=== PATIENT | female | born 1985 | race Caucasian/White ===

== ENCOUNTER → 2017-03-12 11:23 | Outpatient (CLI) | payer BC, SELFPAY ==
--- NOTE | 2017-03-12 11:30 | US_ITS ---
STUDY: SECOND AND THIRD TRIMESTER OBSTETRICAL ULTRASOUND - LIMITED REASON FOR EXAM: Female, 31 years old. viability. LMP: December 01, 2016. PRIOR ULTRASOUND: None. TECHNIQUE: Transabdominal ultrasound evaluation was performed. FINDINGS: There is a single intrauterine fetus. The fetus is in a variable presentation. There is demonstrated cardiac activity with a heart rate of 153 bpm. There is a normal amniotic fluid volume. The placenta is posterior in location and is not low lying. There are Grade 0 placental changes. The cervix measures 6.2 cm in length. BIOMETRY: BPD: 2.98 cm: 15 weeks, 4 days HC: 10.99 cm: 15 weeks, 3 days AC: 8.74 cm: 50 weeks, 0 days FL: 1.49 cm: 14 weeks, 3 days Age by LMP: 14 weeks, 3 days. AMISHA by LMP: September 07, 2017. age by current US: 15 weeks, 0 days. AMISHA by current US: September 03, 2017. Estimated weight: 106 grams, +/- 60 grams, 60 percentile. Gender: Indeterminant US/OB Limited With Biometrics IMPRESSION: Single live intrauterine gestation with a mean gestational age of 15 weeks. Electronically Signed: Massimo Higgins MD at 13:23 EST Tel [phone], Service support ,
== END ==
PROVIDERS: Family Provider Family Medicine; PCP Family Medicine; Visit Provider Obstetrics & Gynecology
DX: Z34.90 Encounter for supervision of normal pregnancy, unspecified, unspecified trimester (principal)
CPT/HCPCS: 76816

== ENCOUNTER → 2017-04-12 10:02 | Outpatient (CLI) | payer BC, SELFPAY ==
[2017-03-19 08:49] VITALS: BP 113/70
[2017-03-19 08:56] VITALS: BMI 30.5
--- NOTE | 2017-04-12 10:05 | US_ITS ---
STUDY: SECOND AND THIRD TRIMESTER OBSTETRICAL ULTRASOUND REASON FOR EXAM: Female, 31 years old. , assessment LMP: November 27, 2016 TECHNIQUE: Transabdominal imaging of the pelvis was performed using real-time ultrasound. PRIOR ULTRASOUND: March 12, 2017 FINDINGS: There is a single intrauterine fetus. The fetus is in a breech presentation. There is demonstrated cardiac activity with a heart rate of 140 bpm. There is a normal amniotic fluid volume. The largest amniotic fluid pocket measures 4.5 cm. The amniotic fluid index (DELLA) is 14.2 cm. The placenta is posterior in location and is not low lying. There are Grade 0 placental changes. The cervix measures 4.4 cm in length. The adnexal regions were not adequately visualized. BIOMETRY: BPD: 4.27 cm: 19 weeks, 0 days HC: 16.31 cm: 19 weeks, 1 days AC: 14.02 cm: 19 weeks, 3 days FL: 3.04 cm: 19 weeks, 3 days CI: 75% FL/BPD: 71% FL/HC: FL/AC: 22% HC/AC: 1.16 age by current US: 19 weeks, 2 days. AMISHA by current US: September 04, 2017. Estimated weight: 288 grams, +/- 42 grams, 41 %. age by prior US: weeks, days. AMISHA by prior US: . Age by LMP: 19 weeks, 3 days. AMISHA by LMP: September 03, 2017. ANATOMY: Gender: Male Cranium: Normal lateral ventricles. Normal choroid plexus. Normal cerebellum. Normal cisterna magna. Normal face, nose and lips. Chest: Within normal limits on limited visualization. Abdomen/Pelvis: Normal diaphragm. Normal stomach. Normal abdominal wall. Normal cord insertion. Normal 3 vessel cord. Normal kidneys. Normal bladder. Spine: Normal cervical spine. Normal thoracic spine. Normal lumbar spine. Extremities: Normal bilateral upper extremities. Normal bilateral lower extremities. US/OB Anatomy Scan IMPRESSION: There is a viable intrauterine with estimated gestational age of 19 weeks 2 days by the current ultrasound. Measurements are given above. No significant anatomic abnormalities are seen. Electronically Signed: Maria Dolores Abdi MD at 13:06 EST Tel Direct: [phone], Service support ,
== END ==
PROVIDERS: Family Provider Family Medicine; PCP Family Medicine; Visit Provider Obstetrics & Gynecology
DX: Z36.89 Encounter for other specified antenatal screening (principal)
CPT/HCPCS: 76805

== ENCOUNTER → 2017-04-16 15:17 | Outpatient (CLI) | payer BC, SELFPAY | PROVIDERS: Family Provider Family Medicine; PCP Family Medicine; Visit Provider Nurse Practitioner Women's Health | DX: Z34.90 Encounter for supervision of normal pregnancy, unspecified, unspecified trimester (principal) | CPT/HCPCS: 87086; 87088 ==

== ENCOUNTER → 2017-06-12 11:33 | Outpatient (CLI) | payer BC, SELFPAY ==
[2017-06-12 12:35] LABS: Absolute Lymphocyte Count 1.58 X10^3/ul (0.83-4.51); Basophil# 0.01 X10^3/uL; Basophil% 0.1 % (0-1); Eosinophil# 0.19 X10^3/uL; Eosinophils% 2.3 % (0-5); Hematocrit 33.8 % (37-47); Hemoglobin 11.3 g/dl (12.0-15.0); Lymphocyte # 1.58 X10^3/ul (4.0); Lymphocyte % 19.2 % (19-41); Mean Corp Hgb Conc 33.4 g/gl (32-36); Mean Corpuscular Hgb 30.5 pg (27.0-32.0); Mean Corpuscular Volume 91.4 fL (81-99); Mean Platelet Vol. 9.8 fl (6.2-12.0); Monocyte# 0.41 X10^3/uL; Neutrophil # 5.97 X10^3/uL (2.7-7.7); Neutrophil % 72.7 % (47-70); Platelet Count 177 K/mm3 (150-450); RBC Distribution Width CV 12.5 % (11.6-14.6); RBC Distribution Width SD 40.7 fl (35.1-43.9); White Blood Count 8.2 K/mm3 (4.4-11.0)
[2017-06-12 12:36] LABS: POSITIVE COUNT NO; POSITIVE DIFFERENTIAL NO; POSITIVE MORPHOLOGY NO
[2017-06-12 12:51] LABS: Glucose Challenge Gest 1H 50g 162 mg/dL (70-140)
== END ==
PROVIDERS: Family Provider Family Medicine; PCP Family Medicine; Visit Provider Obstetrics & Gynecology
DX: Z34.82 Encounter for supervision of other normal pregnancy, second trimester (principal)
CPT/HCPCS: 36415; 82950; 85025; 86850; 86900

== ENCOUNTER → 2017-06-13 07:00 | Outpatient (CLI) | payer BC, SELFPAY ==
[2017-06-13 07:39] LABS: Glucose GTT-Gestation. Fasting 86 mg/dL (<105)
[2017-06-13 10:18] LABS: Glucose GTT-Gestational 1 Hr 151 mg/dL (<190)
[2017-06-13 10:21] LABS: Glucose GTT-Gestational 2 Hr 143 mg/dL (<165)
[2017-06-13 11:50] LABS: Glucose GTT-Gestational 3 Hr 93 L (<145)
== END ==
PROVIDERS: Family Provider Family Medicine; PCP Family Medicine; Visit Provider Nurse Practitioner Women's Health
DX: O99.810 Abnormal glucose complicating pregnancy (principal); Z3A.00 Weeks of gestation of pregnancy not specified
CPT/HCPCS: 36415; 82951; 82952

== ENCOUNTER → 2017-08-07 13:34 | Outpatient (CLI) | payer BC, SELFPAY ==
[2017-08-07 15:57] LABS: Group B Strep DNA By PCR Negative (Negative); Internal Control PASS; Probe Check PASS; Specimen Processing Control PASS
== END ==
PROVIDERS: Family Provider Family Medicine; PCP Family Medicine; Visit Provider Obstetrics & Gynecology
DX: Z34.90 Encounter for supervision of normal pregnancy, unspecified, unspecified trimester (principal)
CPT/HCPCS: 87081; 87653

== ENCOUNTER 2017-08-28 10:20 | Inpatient (IN) | payer BC, SELFPAY ==
[2017-08-26 17:41] VITALS: BMI 35.0
[2017-08-26 18:46] LABS: Absolute Lymphocyte Count 1.76 X10^3/ul (0.83-4.51); Absolute Neutrophil Count 5.5 X10^3/uL (2.0-7.7); Basophil# 0.01 X10^3/uL; Basophil% 0.1 % (0-1); Eosinophil# 0.13 X10^3/uL; Eosinophils% 1.6 % (0-5); Hematocrit 31.7 % (37-47); Hemoglobin 10.3 g/dl (12.0-15.0); Lymphocyte # 1.76 X10^3/ul (4.0); Lymphocyte % 21.8 % (19-41); Mean Corp Hgb Conc 32.5 g/gl (32-36); Mean Corpuscular Hgb 28.2 pg (27.0-32.0); Mean Corpuscular Volume 86.8 fL (81-99); Mean Platelet Vol. 10.2 fl (6.2-12.0); Monocyte# 0.65 X10^3/uL; Monocyte% 8.1 % (0-10); Neutrophil # 5.45 X10^3/uL (2.7-7.7); Neutrophil % 67.7 % (47-70); Platelet Count 137 K/mm3 (150-450); RBC Distribution Width CV 13.2 % (11.6-14.6); RBC Distribution Width SD 40.8 fl (35.1-43.9); Red Blood Count 3.65 M/mm3 (4.2-5.4); White Blood Count 8.1 K/mm3 (4.4-11.0)
[2017-08-26 18:47] LABS: POSITIVE COUNT NO; POSITIVE DIFFERENTIAL NO; POSITIVE MORPHOLOGY NO
--- NOTE | 2017-08-27 23:50 | PCM.HP.OB ---
- Problem List (1) with abnormal glucose tolerance test Status: Acute Comment: 3 hr GTT ordered (2) Anxiety during in third trimester, antepartum Status: Acute Comment: manolo hollowayril (3) Rh negative status during Status: Acute Qualifiers: Trimester: third trimester Comment: rhogam PRN and at 28 weeks (4) History of delivery, currently Status: Acute Comment: Wants repeat CS- 08/28/17 at Noon PAT 08/26/17 at 5pm in [place]. Declines TOLAC 53-68% likelihood of success, literature given (5) Supervision of normal Status: Acute Qualifiers: Normal : other normal Trimester: third trimester Qualified Code(s): Z34.83 - Encounter for supervision of other normal , third trimester Comment: PRR AMISHA 09/04/17 boy WON Mays Christiano History Date of Admission: 08/28/17 Final AMISHA: 09/04/17 Gestational age: 38 Weeks and 6 Days History of this : This is a 32 year-old, at 39 weeks gestational age presents for [facility] Medical History: Medical History (Last Reviewed 08/21/17 @ 11:26 by Ana Loomis) Abnormal Pap smear of cervix R87.619 Surgical History: Surgical History (Last Reviewed 08/21/17 @ 11:26 by Ana Loomis) delivery delivered O82 History of tonsillectomy and adenoidectomy Z98.890 gallbladder surgery Allergies No Known Allergies Allergy (Verified 08/21/17 09:11) Home Medications: Home Medications aspirin 81 mg chewable tablet 81 mg PO ONCE 03/19/17 vitamin,calcium,gqnedpok-gqja-wdwmz acid tablet 1 tab PO QDAY 03/19/17 citalopram 20 mg tablet 20 mg PO QDAY #30 tab 05/16/17 hydroxyzine pamoate 25 mg capsule 25 mg PO TID-QID PRN #60 cap 05/16/17 Boostrix Tdap 2.5 Lf unit-8 mcg-5 Lf/0.5 mL intramuscular syringe 0.5 ml IM ONCE #1 NS 06/12/17 RhoGAM Ultra-Filtered PLUS 1,500 unit (300 mcg) intramuscular syringe 1,500 unit IM ONCE #1 ea NS 06/12/17 Smoking Status: Former smoker History Past Pregnancies: Past Pregnancies Delivery Date Name GA/Weeks Outcome Route Weight Gender Labor Length Anesthesia Delivery Location Provider FOB Labs: Mom's Labs & Results 08/26/17 08/26/17 18:20 18:20 WBC 8.1 RBC 3.65 L Hgb 10.3 L Hct 31.7 L MCV 86.8 MCH 28.2 MCHC 32.5 RDW 13.2 RDW Differential 40.8 Plt Count 137 L MPV 10.2 Immature Gran % (Auto) 0.700 Neut % (Auto) 67.7 Lymph % (Auto) 21.8 Mckinley % (Auto) 8.1 Eos % (Auto) 1.6 Baso % (Auto) 0.1 Absolute Neuts (auto) 5.5 Absolute Lymphs (auto) 1.76 Total Counted Not Reportable Blood Type O NEGATIVE Antibody Screen NEGATIVE Course Did the patient receive Yes care? Labs Blood Type: O RH: NEGATIVE RPR/VDRL/Syphilis Nonreactive Rubella status Immune HbSAg Negative Date Done: 01/16/17 Chlamydia Negative Gonorrhea Negative HIV/AIDS Non-Reactive Group B Strep: Positive Current Obstetrical History Gestational Diabetes No Incompetent Cervix No Infertility No IUGR No Macrosomia No Hypertension/Pre-eclampsia No Placenta Previa/Abruption No PTL/PROM No Uterine anomaly No Oligohydramnios No Polyhydramnios No Multiple gestation No Past Medical History Asthma No Diabetes No Hypertension No Heart disease No Mitral valve prolapse No Neurologic/Seizure disorder/ No Migraines Kidney disease No Liver disease No Varicosities No Clotting disorders/Hx of DVT No Thyroid Dysfunction No Other medical diseases No Psychiatric disorders No Major trauma No Abnormal PAP smear No Sleep apnea No Mammogram in the last 2 years No Social History Marital Status: Alleged father Christiano Hx Smoking Yes Smoking Status Former smoker Expected Delivery Method: Scheduled Section Review of Systems Constitutional: Denies: Fever, Malaise Eyes: Denies: Blurred vision, Vision Change HEENT: Denies: Head Aches, Visual Changes Cardiovascular: Denies: Chest Pain, Palpitations Respiratory: Denies: Cough, Shortness of Breath, Wheezing Gastrointestinal: Denies: Abdominal Pain, Diarrhea, Nausea, Vomiting Genitourinary: Denies: Dysuria, Hematuria Musculoskeletal: Denies: Joint Pain, Muscle pain Skin: Denies: Lesions, Rash Neurological: Denies: Blurred vision, Focal weakness, Headaches Psychiatric: Denies: Anxiety, Depression Endocrine: Denies: Heat/ Cold Intolerance Hematologic/ Lymphatic: Denies: Easy Bruising, Easy Bleeding Physical Exam General: Alert, Cooperative, No apparent distress HEENT: Atraumatic, Normocephalic. Negative for: Thyromegaly, Lymphadenopathy Cardiovascular: Regular rate Lungs: Normal air movement Abdomen: Soft, Non Tender, Gravid Neurological: Deep Tendon Reflexes 2+/4 and Symmetrical, Neuro grossly intact. 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 Negative for: Vulvar lesions Estimated gestational size: Appropriate for gestational size Presentation: Cephalic Assessment/Plan All Active Problems (Last Reviewed 08/21/17 @ 11:26 by Ana Loomis) Segmental and somatic dysfunction of cervical region (Acute) Segmental and somatic dysfunction of pelvic region (Acute) Segmental and somatic dysfunction of sacral region (Acute) with abnormal glucose tolerance test (Acute) Anxiety during in third trimester, antepartum (Acute) Rh negative status during (Acute) History of delivery, currently (Acute) Supervision of normal (Acute) This is a 32 year-old, , at 39 weeks gestational age for RLTCS plan RLTCS declines TOLAC
--- NOTE | 2017-08-27 23:53 | HP.PCM_ITS ---
- Problem List (1) with abnormal glucose tolerance test Status: Acute Comment: 3 hr GTT ordered (2) Anxiety during in third trimester, antepartum Status: Acute Comment: manolo hollowayril (3) Rh negative status during Status: Acute Qualifiers: Trimester: third trimester Comment: rhogam PRN and at 28 weeks (4) History of delivery, currently Status: Acute Comment: Wants repeat CS- 08/28/17 at Noon PAT 08/26/17 at 5pm in [place]. Declines TOLAC 53-68% likelihood of success, literature given (5) Supervision of normal Status: Acute Qualifiers: Normal : other normal Trimester: third trimester Qualified Code(s): Z34.83 - Encounter for supervision of other normal , third trimester Comment: PRR AMISHA 09/04/17 boy WON Mays Christiano History Date of Admission: 08/28/17 Final AMISHA: 09/04/17 Gestational age: 38 Weeks and 6 Days History of this : This is a 32 year-old, at 39 weeks gestational age presents for [facility] Medical History: Medical History (Last Reviewed 08/21/17 @ 11:26 by Ana Loomis) Abnormal Pap smear of cervix R87.619 Surgical History: Surgical History (Last Reviewed 08/21/17 @ 11:26 by Ana Loomis) delivery delivered O82 History of tonsillectomy and adenoidectomy Z98.890 gallbladder surgery Allergies No Known Allergies Allergy (Verified 08/21/17 09:11) Home Medications: Home Medications aspirin 81 mg chewable tablet 81 mg PO ONCE 03/19/17 vitamin,calcium,qrvepvxl-jouh-xayyk acid tablet 1 tab PO QDAY 03/19/17 citalopram 20 mg tablet 20 mg PO QDAY #30 tab 05/16/17 hydroxyzine pamoate 25 mg capsule 25 mg PO TID-QID PRN #60 cap 05/16/17 Boostrix Tdap 2.5 Lf unit-8 mcg-5 Lf/0.5 mL intramuscular syringe 0.5 ml IM ONCE #1 NS 06/12/17 RhoGAM Ultra-Filtered PLUS 1,500 unit (300 mcg) intramuscular syringe 1,500 unit IM ONCE #1 ea NS 06/12/17 Smoking Status: Former smoker History Past Pregnancies: Past Pregnancies Delivery Date Name GA/Weeks Outcome Route Weight Gender Labor Length Anesthesia Delivery Location Provider FOB Labs: Mom's Labs & Results 08/26/17 08/26/17 18:20 18:20 WBC 8.1 RBC 3.65 L Hgb 10.3 L Hct 31.7 L MCV 86.8 MCH 28.2 MCHC 32.5 RDW 13.2 RDW Differential 40.8 Plt Count 137 L MPV 10.2 Immature Gran % (Auto) 0.700 Neut % (Auto) 67.7 Lymph % (Auto) 21.8 Leslie % (Auto) 8.1 Eos % (Auto) 1.6 Baso % (Auto) 0.1 Absolute Neuts (auto) 5.5 Absolute Lymphs (auto) 1.76 Total Counted Not Reportable Blood Type O NEGATIVE Antibody Screen NEGATIVE Course Did the patient receive Yes care? Labs Blood Type: O RH: NEGATIVE RPR/VDRL/Syphilis Nonreactive Rubella status Immune HbSAg Negative Date Done: 01/16/17 Chlamydia Negative Gonorrhea Negative HIV/AIDS Non-Reactive Group B Strep: Positive Current Obstetrical History Gestational Diabetes No Incompetent Cervix No Infertility No IUGR No Macrosomia No Hypertension/Pre-eclampsia No Placenta Previa/Abruption No PTL/PROM No Uterine anomaly No Oligohydramnios No Polyhydramnios No Multiple gestation No Past Medical History Asthma No Diabetes No Hypertension No Heart disease No Mitral valve prolapse No Neurologic/Seizure disorder/ No Migraines Kidney disease No Liver disease No Varicosities No Clotting disorders/Hx of DVT No Thyroid Dysfunction No Other medical diseases No Psychiatric disorders No Major trauma No Abnormal PAP smear No Sleep apnea No Mammogram in the last 2 years No Social History Marital Status: Alleged father Christiano Hx Smoking Yes Smoking Status Former smoker Expected Delivery Method: Scheduled Section Review of Systems Constitutional: Denies: Fever, Malaise Eyes: Denies: Blurred vision, Vision Change HEENT: Denies: Head Aches, Visual Changes Cardiovascular: Denies: Chest Pain, Palpitations Respiratory: Denies: Cough, Shortness of Breath, Wheezing Gastrointestinal: Denies: Abdominal Pain, Diarrhea, Nausea, Vomiting Genitourinary: Denies: Dysuria, Hematuria Musculoskeletal: Denies: Joint Pain, Muscle pain Skin: Denies: Lesions, Rash Neurological: Denies: Blurred vision, Focal weakness, Headaches Psychiatric: Denies: Anxiety, Depression Endocrine: Denies: Heat/ Cold Intolerance Hematologic/ Lymphatic: Denies: Easy Bruising, Easy Bleeding Physical Exam General: Alert, Cooperative, No apparent distress HEENT: Atraumatic, Normocephalic. Negative for: Thyromegaly, Lymphadenopathy Cardiovascular: Regular rate Lungs: Normal air movement Abdomen: Soft, Non Tender, Gravid Neurological: Deep Tendon Reflexes 2+/4 and Symmetrical, Neuro grossly intact. Negative for: Clonus COUNSEL: Normal external genitalia. Negative for: Vulvar lesions Estimated gestational size: Appropriate for gestational size Presentation: Cephalic Assessment/Plan All Active Problems (Last Reviewed 08/21/17 @ 11:26 by Ana Loomis) Segmental and somatic dysfunction of cervical region (Acute) Segmental and somatic dysfunction of pelvic region (Acute) Segmental and somatic dysfunction of sacral region (Acute) with abnormal glucose tolerance test (Acute) Anxiety during in third trimester, antepartum (Acute) Rh negative status during (Acute) History of delivery, currently (Acute) Supervision of normal (Acute) This is a 32 year-old, , at 39 weeks gestational age for RLTCS plan RLTCS declines TOLAC
[2017-08-28] VITALS (17 sets, daily range): BP systolic 87–121; BP diastolic 42–77; PULSE 68–90; RESP 16–18; TEMP 36.1–36.6; O2SAT 95–99; BMI 34.5
[2017-08-28] MEDS: Lactated Ringers 1,000 ML 999 ML IV (10:05)
[2017-08-28] MEDS: Lactated Ringers 1,000 ML 150 ML IV ×2 (11:05→14:36)
[2017-08-28] MEDS: Sodium Citrate/Citric Acid 30 ML UDC PO (12:04)
[2017-08-28] MEDS: Oxytocin 30 units/NS 500 ml 30 UNITS/500 ML IV.SOLN 167 UNITS IV (13:30)
[2017-08-28] MEDS: Ketorolac 30 MG/ML Syringe IV ×2 (19:00→23:42)
[2017-08-28] MEDS: Lactated Ringers 1,000 ML 100 ML IV (22:15)
[2017-08-29] VITALS (13 sets, daily range): BP systolic 99–109; BP diastolic 45–67; PULSE 67–84; RESP 16–19; TEMP 36.3–36.9; O2SAT 95–98
--- NOTE | 2017-08-29 03:26 | PCM.OPRPT ---
Problem List (1) with abnormal glucose tolerance test Status: Acute Comment: 3 hr GTT ordered (2) Anxiety during in third trimester, antepartum Status: Acute Comment: celexa vistaril (3) Rh negative status during Status: Acute Qualifiers: Trimester: third trimester Comment: rhogam PRN and at 28 weeks (4) History of delivery, currently Status: Acute Comment: Wants repeat CS- 08/28/17 at Noon PAT 08/26/17 at 5pm in [place]. Declines TOLAC 53-68% likelihood of success, literature given (5) Supervision of normal Status: Acute Qualifiers: Normal : other normal Trimester: third trimester Qualified Code(s): Z34.83 - Encounter for supervision of other normal , third trimester Comment: PRR AMISHA 09/04/17 boy WON Mays Christiano Report of Operation Date of Procedure: 08/29/17 Pre-Operative Diagnosis: previous csection Post-Operative Diagnosis: same Surgery/Procedure Performed:: RLTCS Description of Surgical Findings:: normal uterus tubes ovaries safety relief valve technician: iLna Angela Type of Anesthesia:: Spinal Specimen's removed: male infant Drains: obrien Estimated Blood Loss (mL): 800 Fluids Replaced: crystalloid Description of Procedure: The patient is a 32 yo at 39 weeks presented for repeat . Spinal anesthesia was placed without difficulty. Obrien catheter was placed. The patient was placed in the dorsal supine position with leftward tilt. Patient was prepped and draped in the normal sterile fashion. Pfannenstiel skin incision was made with the scalpel and carried through to the underlying layer of fascia with the scalpel. Fascia was nicked in the midline and the incision extended laterally. The rectus bellies were dissected off superiorly and inferiorly with out complication both sharply and bluntly. The peritoneum was entered digitally. The incision was stretched and a low transverse uterine incision was made with the scalpel. The 's head was delivered atraumatically followed by the anterior and posterior shoulders without complication the rest of the infant delivered. The cord was clamped and cut and the infant was handed off to awaiting nurse. The placenta was delivered spontaneously immediately following and was noted to be intact and have a three-vessel cord. The uterus was exteriorized cleared of all clots and debris, and the incision was closed in a double layer closure using #1 Monocryl. The uterus was returned to the maternal abdomen and gutters were cleared of all clots and debris. The ovaries and fallopian tubes were noted to be within normal limits. The peritoneum was closed with 3-0 Monocryl in a running fashion. Fascia was closed with 0 PDS in a running fashion. Subcutaneous tissue was copiously irrigated and the skin was closed with 3-0 Monocryl in a subcuticular fashion. Mepilex dressing were applied without complication. Patient was taken to recovery in stable condition. Grafts/Implants Used: none - Complications none
[2017-08-29 05:31] LABS: Hematocrit 27.8 % (37-47); Hemoglobin 9.1 g/dl (12.0-15.0); Mean Corp Hgb Conc 32.7 g/gl (32-36); Mean Corpuscular Hgb 28.3 pg (27.0-32.0); Mean Corpuscular Volume 86.3 fL (81-99); Mean Platelet Vol. 10.5 fl (6.2-12.0); Platelet Count 133 K/mm3 (150-450); RBC Distribution Width CV 13.1 % (11.6-14.6); RBC Distribution Width SD 39.6 fl (35.1-43.9); Red Blood Count 3.22 M/mm3 (4.2-5.4); White Blood Count 12.7 K/mm3 (4.4-11.0)
[2017-08-29 05:33] LABS: Scan Indicated on CBC? Y/N NO
[2017-08-29] MEDS: Ketorolac 30 MG/ML Syringe IV ×4 (06:16→23:47)
[2017-08-29] MEDS: Lactated Ringers 1,000 ML 100 ML IV (06:18)
[2017-08-29] MEDS: Prenatal Vits Tablet 1 TABLET PO (09:01)
[2017-08-29] MEDS: Senna/Docusate Sodium 1 Tablet PO (09:02)
[2017-08-29] MEDS: Acetaminophen 500 MG Tablet 1000 MG PO (13:28)
--- NOTE | 2017-08-29 14:50 | CASEMGMT ---
Social Work Assessment Labor and Delivery Unit Date of Referral: 08/29/2017 Time of Referral: 1449 Referred By: Dr. Laguna Date of Intervention: 08/29/2017 Time of Intervention: 1450 Reason for Referral: maternal history of anxiety; positive PHQ9 with score of 16 History obtained from: mother of baby (MOB) and medical record Household composition: MOB, father of baby (FOB) and their older child. MOB reports just finished a naqlvi-gu-mea suite in the basement of the home. MOBs mother will be staying there and helping to for now. Patient's parent/guardian status: MOB and FOB are for the last 3 years, together for 11 years now. MOB denies any safety concerns or history of abuse in this relationship. MOB and FOB now have two children together: Davon (born in 2012) and baby boy Dustin Mercedes (Born 08[birth year]2017). Medical History: MOB is G4, P1 to 2 after delivering Dustin. MOB with care starting early at [facility] then transferring care to Dr. Laguna at 15 weeks gestation. Infant born weighing 4370 grams, Apgars 8 and 9 at 1 and 5 minutes of life. Educational Status: No reported issue with reading, writing, or learning comprehension. 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 FOB works doing roadside construction. Supplies: MOB reports to have needed infant supplies including a safe sleep space and a car seat for traveling. Childcare/Caregiver(s): MOB and then MOBs mother will be for now. Transportation: No issues. Programs/Agencies Involved: No agency involvement and no history of any children services involvement. Behavioral Health Issues: Mental Health History: MOB reports history of anxiety surfacing in the third trimester. MOB was treated with Vistaril and Celexa. MOB reports took the medicine for a couple of months, but felt like it did not help that much. MOB reports was not really for starting back on the medicine, but now may reconsider since taking the depressing screening tool this admission. MOB denies any history of depression, denies any thoughts/plans/intent/attempts regarding suicide past or present. Substance use history: MOB drinks socially, beer is involved in MOBs daily job. MOB denies alcohol use during . MOB denies any illicit drug use history. No tobacco use. Drug screen: MOB with negative drug screen on 01-16-17. PHQ9 depression screen discussion: MOB with PHQ9 score of 16. MOB endorses difficulty with sleeping and being tired nearly every day over the last 2 weeks. MOB reports this could be [id number] to the end of , MOB being uncomfortable and having hip issues. Endorses little interest in things, feeling down, appetite changes, and trouble concentrating more than half days. Feeling bad about self and feeling more restless several days. No thoughts of suicide or that life would be better off at all reported or endorsed by MOB. MOB discusses that has several stressors prior to and then not feeling well physically seemed to compound MOBs anxiety. MOB reports feeling more hopeful at this point, in that MOBs reports relief in hip pain since delivery and hopes that will be able to get up and move around as is normal for MOB in the past. MOB reports will consider restarting medication and if this does not help would think about counseling options. MOB reports to feel to have a good support system and agrees to let others know if struggling. MOB reports appreciation for social problems specialist having a talk with MOB about depression and anxiety, and bringing it to the forefront in that MOB has to think about it and address self care. MOB reports tendency to stuff things down and not always deal with what his happening but knows that it is important to care for self. Family/Social Stressors: MOB reports prior to conception with Dustin, MOB did have a miscarriage. FOBs mother as well, MOB was having to travel for work during , and the family was working on remodeling the [id number]-[id number] suite before the baby arrive. In addition to these changes and stressors over the last year or so, during this MOB developed severe hip pain to the point that MOB could not lift things or do normal activities as was usual for MOB. MOB reports to feel that all of these things combine have contributed to MOBs increasing anxiety and some depression over the last part of . Support Systems: MOB reports to have a large family on her side and on FOBs side, that both sides are supportive and helpful. MOB will have help at home going from FOB, and then from MOBs mother who is moving in to help out. MOB reports to have people she can talk to as well. ASSESSMENT: MOB and FOB both present when social problems specialist entered the room. However, as visitors were coming MOB had FOB leave the room and hang out with visitors until social work visit was over. MOB pleasant, friendly, and seemingly open to conversation about depression screening, as evidenced by MOB listening and giving feedback to input this insurance underwriter sales offered. MOB held good eye contact, affect congruent to content, mood appropriate, teary eyed a few times during conversation. MOB held baby, gazed at baby, smiled, and was attentive. No concerns voiced either by nursing staff about mother/child interactions. MOB reports to have adequate support at home, to have baby supplies, to feel a connecting to this baby and to love the baby. MOB educated to depression and anxiety, risks present for such, and importance for self-care in the period. Discussed restarting medication, possible benefits for counseling, possible coping skills to try, and getting fresh air and movement each day in the period. MOB reports will consider options for treatment of depression and anxiety, and thanked this insurance underwriter sales for information. MOB accepted resources offered. MOB reports to be doing fine financially, so no resources such as [facility] are needed or indicated for this family. Provided MOB with packet on depression, including online resources/support groups. Provided local counseling options, [facility] program flier, and 24 hour emergency number if needed in the future. PLAN: MOB and baby to home at time of discharge. MOB has resources for mental health treatment if MOB decides in need of more support in the future. No other services requested or indicated. -YAMILA Osuna, ROSALINDA
[2017-08-29] MEDS: Citalopram 20 MG Tablet PO (16:28)
[2017-08-29] MEDS: 0.9% Saline Lock 10 ML Syringe IV ×3 (18:07→23:50)
[2017-08-29] MEDS: oxyCODONE 5 MG Tablet PO ×2 (19:13→23:57)
[2017-08-30 01:15] VITALS: BP 111/59; PULSE 74; RESP 16; TEMP 36.6
[2017-08-30] MEDS: oxyCODONE 5 MG Tablet PO ×2 (04:36→08:28)
[2017-08-30] MEDS: Ketorolac 30 MG/ML Syringe IV (05:49)
[2017-08-30] MEDS: 0.9% Saline Lock 10 ML Syringe IV ×2 (05:49→05:51)
--- NOTE | 2017-08-30 06:57 | PCM.PN.OB ---
Subjective: late entry- 08/29/17 patient seen at 7:30 am doing well no CP SOB N V pain controlled - Physical Exam General: Alert, Oriented x3 Vital Signs Temp Pulse Resp BP Pulse Ox 97.8 F 74 16 111/59 L 96 08/30/17 01:15 08/30/17 01:15 08/30/17 01:15 08/30/17 01:15 08/29/17 19:40 Oxygen Delivery Method Room Air Weight: 214 lb Body Mass Index (BMI) 34.5 Intake and Output for Last 24 Hours 08/28/17 08/29/17 08/30/17 23:59 23:59 23:59 Intake Total 1669 / 1669 1194 / 1194 Output Total 1700 / 1700 2200 / 2200 Balance -31 / -31 -1006 / -1006 Medical Necessity - Tobacco Use Smoking Status: Former smoker Assessment/Plan All Active Problems (Last Reviewed 08/21/17 @ 11:26 by Ana Loomis) Segmental and somatic dysfunction of cervical region (Acute) Segmental and somatic dysfunction of pelvic region (Acute) Segmental and somatic dysfunction of sacral region (Acute) with abnormal glucose tolerance test (Acute) Anxiety during in third trimester, antepartum (Acute) Rh negative status during (Acute) History of delivery, currently (Acute) Supervision of normal (Acute) s/p [facility] routine care doing well dc home tomorrow
--- NOTE | 2017-08-30 06:58 | PCM.PN.OB ---
Subjective: doing well no complaints - Physical Exam General: Alert, Oriented x3 Abdomen: - - incsn: C/D/I Vital Signs Temp Pulse Resp BP Pulse Ox 97.8 F 74 16 111/59 L 96 08/30/17 01:15 08/30/17 01:15 08/30/17 01:15 08/30/17 01:15 08/29/17 19:40 Oxygen Delivery Method Room Air Weight: 214 lb Body Mass Index (BMI) 34.5 Intake and Output for Last 24 Hours 08/28/17 08/29/17 08/30/17 23:59 23:59 23:59 Intake Total 1669 / 1669 1194 / 1194 Output Total 1700 / 1700 2200 / 2200 Balance -31 / -31 -1006 / -1006 Medical Necessity - Tobacco Use Smoking Status: Former smoker Assessment/Plan All Active Problems (Last Reviewed 08/21/17 @ 11:26 by Ana Loomis) Segmental and somatic dysfunction of cervical region (Acute) Segmental and somatic dysfunction of pelvic region (Acute) Segmental and somatic dysfunction of sacral region (Acute) with abnormal glucose tolerance test (Acute) Anxiety during in third trimester, antepartum (Acute) Rh negative status during (Acute) History of delivery, currently (Acute) Supervision of normal (Acute) s/p [facility] routine care [facility]
--- NOTE | 2017-08-30 06:59 | DCINST_ITS ---
Discharge Diet: No Restrictions Discharge Activity: May Not Drive - for 2 weeks, May not drive while taking narcotic pain medications., May Shower, May Take a Tub Bath - in 7 days May resume sexual activity in: 4-6 weeks Lifting Restrictions: 20 pounds Additional Activity Instructions:: Nothing in the vagina for 4-6 weeks. You may return to work/school in 6 weeks. Call your doctor if your incision/area has: Continuous Slow Oozing, Sudden Increased Bleeding, Increased Pain/ Swelling, Increased Redness, Foul Smelling Discharge Call your doctor if you observe: Fever of 101 or Higher, Using more than one pad per hour - for 2 hours Suture Line Care: Avoid Pulling/Pushing, Avoid Pinching/Bending Cleanse incision/area with: Keep Dressing Clean & Dry Additional Instructions: If you experience any of the following, contact your healthcare provider. * Bleeding that soaks a pad every hour for 2 hours * Fever 100.4 or higher * Unrelieved incision or abdominal pain * Swelling, redness, discharge or bleeding from your incision or episiotomy site * Your incision begins to separate * Problems urinating (including inability to urinate or burning while urinating) . * Visual changes * Severe headache * Flu-like symptoms * Pain or redness in one of both of your breasts * Pain, warmth, tenderness or swelling in your legs, especially the calf area * Frequent nausea and vomiting * Symptoms of depression or anxiety If you experience any of the following, call 911 or go to the nearest Emergency Room. * Chest pain * Problems breathing * Seizure activity * Partial or complete paralysis of a body part, slurred speech, weakness or drooping of the face, or a sudden inability to walk or hold your balance Allergies/Adverse Reactions: Allergies No Known Allergies Allergy (Verified 08/21/17 09:11) Medications to take at Discharge aspirin 81 mg chewable tablet 81 mg PO ONCE 03/19/17 vitamin,calcium,ltaalhlv-fkxq-khywy acid tablet 1 tab PO QDAY 03/19/17 citalopram 20 mg tablet 20 mg PO QDAY #30 tab 05/16/17 hydroxyzine pamoate 25 mg capsule 25 mg PO TID-QID PRN #60 cap 05/16/17 Boostrix Tdap 2.5 Lf unit-8 mcg-5 Lf/0.5 mL intramuscular syringe 0.5 ml IM ONCE #1 NS 06/12/17 RhoGAM Ultra-Filtered PLUS 1,500 unit (300 mcg) intramuscular syringe 1,500 unit IM ONCE #1 ea NS 06/12/17 Naproxen [Naprosyn] 250 - 500 mg PO Q8H PRN PRN #30 tab 08/30/17 Oxycodone HCl/Acetaminophen [Percocet 5-325] 1 - 2 tablet PO Q4H PRN PRN 7 Days #28 tablet 08/30/17 The following prescriptions were given: Oxycodone HCl/Acetaminophen [Percocet 5-325] 1 - 2 tablet PO Q4H PRN PRN 7 Days #28 tablet PRN Reason: Moderate-Severe pain Naproxen [Naprosyn] 250 - 500 mg PO Q8H PRN PRN #30 tab PRN Reason: MILD PAIN Follow-Up: Call to make an appointment with your doctor for an incision check in 1-2 weeks. You will also need a 6 week post- follow up appointment. Test results from this visit will be discussed in further detail at your follow- up appointment, if applicable. Please Follow Up With: Alexandra Laguna MD - Call to make an appointment for an incision check in 1-2 [phone] When: You will need a post- check in 6 weeks. Primary Care Physician: Azael Dailey MD [Primary Care Provider] -
[2017-08-30 08:00] VITALS: BP 112/62; PULSE 72; RESP 18; TEMP 37.1
[2017-08-30] MEDS: Senna/Docusate Sodium 1 Tablet PO (08:28)
[2017-08-30] MEDS: Citalopram 20 MG Tablet PO (10:23)
[2017-08-30] MEDS: Prenatal Vits Tablet 1 TABLET PO (10:23)
--- NOTE | 2017-08-30 15:14 | NURSING ---
1040 Discharged to home in wheelchair with baby in lap in carseat to car. States she is ready to go home and feels able to care for herself and her baby.
== END 2017-08-30 10:40 | disposition home or self-care (01) | DRG 765 ==
PROVIDERS: Admitting Provider Obstetrics & Gynecology; Family Provider Family Medicine; PCP Family Medicine; Visit Provider Obstetrics & Gynecology
PROC: (CPT 59514; principal; 2017-08-28 11:45)
DX: O34.211 Maternal care for low transverse scar from previous cesarean delivery (principal); O36.0130 Maternal care for anti-D [Rh] antibodies, third trimester, not applicable or unspecified; O99.344 Other mental disorders complicating childbirth; F41.9 Anxiety disorder, unspecified; O99.824 Streptococcus B carrier state complicating childbirth; O99.814 Abnormal glucose complicating childbirth; O99.89 Other specified diseases and conditions complicating pregnancy, childbirth and the puerperium; M99.01 Segmental and somatic dysfunction of cervical region; M99.05 Segmental and somatic dysfunction of pelvic region; M99.04 Segmental and somatic dysfunction of sacral region; Z87.891 Personal history of nicotine dependence; Z79.82 Long term (current) use of aspirin; Z3A.39 39 weeks gestation of pregnancy; Z37.0 Single live birth
CPT/HCPCS: 85025; 85027; 85461; 86850; 86900; 90384; 99218; J7120; A4216; G0378; J2405; J2790

== ENCOUNTER 2017-09-04 10:45 | Outpatient (CLI) | payer BC, SELFPAY | END 2017-09-04 11:45 | disposition home or self-care (01) | LOC: WPOUT 10:45 → WP 10:46 | PROVIDERS: Family Provider Family Medicine; PCP Family Medicine; Visit Provider Obstetrics & Gynecology | DX: Z39.1 Encounter for care and examination of lactating mother (principal) | CPT/HCPCS: 96152 ==

== ENCOUNTER 2017-09-08 13:00 | Outpatient (CLI) | payer BC, SELFPAY | END 2017-09-08 13:15 | disposition home or self-care (01) | LOC: WPOUT 13:02 → WP 13:03 | PROVIDERS: Family Provider Family Medicine; PCP Family Medicine; Visit Provider Obstetrics & Gynecology | DX: Z39.1 Encounter for care and examination of lactating mother (principal) | CPT/HCPCS: 96152 ==

== ENCOUNTER → 2017-10-01 11:42 | Outpatient (CLI) | payer BC, SELFPAY ==
[2017-10-01 14:41] LABS: Hemoglobin A1c 5.6 % (4.2-6.3); Vitamin B12 365 pg/mL (211-911)
[2017-10-01 14:50] LABS: BUN 13 mg/dL (7-18); Creatinine, Serum 0.71 mg/dL (0.55-1.02); Glucose 94 mg/dL (74-106)
[2017-10-01 14:51] LABS: ALB/GLOB Ratio 1.1 RATIO (0.9-2.4); AST(SGOT) 17 U/L (15-37); Alanine Aminotransfer ALT/SGPT 30 U/L (13-56); Albumin, Serum 3.8 g/dL (3.2-5.0); Alkaline Phosphatase 89 U/L (45-117); Anion Gap 11 (5-15); BUN/Creat Ratio 18.3 RATIO (10-20); Calcium,Total 8.7 mg/dL (8.5-10.1); Chloride 106 mmol/L (98-107); EST Glomerular Filtration Rate 100 mL/min (>60); Est Glom Filt Rate - Afr Amer 122 mL/min (>60); Ferritin 95 ng/mL (8-252); Globulin 3.4 g/dL (2.2-4.2); Magnesium 2.2 mg/dL (1.6-2.6); Potassium 4.5 mmol/L (3.5-5.1); Protein, Total 7.2 g/dL (6.4-8.2); Sodium Level 139 mmol/L (136-145); Thyroid Stim Hormone (TSH) 0.99 uIU/mL (0.358-3.74)
== END ==
PROVIDERS: Family Provider Family Medicine; PCP Family Medicine; Visit Provider Family Medicine
DX: G54.0 Brachial plexus disorders (principal); R20.2 Paresthesia of skin
CPT/HCPCS: 36415; 72050; 80053; 82607; 82728; 82746; 83036; 83735; 84443

== ENCOUNTER 2017-10-20 09:00 | Outpatient (RCR) | payer BC, SELFPAY ==
--- NOTE | 2017-10-03 13:32 | HP.PTEVAL ---
Patient's Visit Information TIFFANIE WHITTAKER is a 32 year old F referred to Physical Therapy by Azael Dailey with a diagnosis of B UE pain and radiculopathy. Date of Evaluation: 10/03/17 Physical Therapist: Jamison Lopez, PT, - Visit Plan Frequency: 2x /Week Duration: 4-6 Weeks Plan: Postural edu, C/S stretching (scalenes), DTR, scap stab ex's, UBE, and HEP - Subjective Subjective: Pt reports having B lower arm and hand pain and weakness intermittently for the past 8 years. Pt notes she had a baby a month ago, and this is what has instigated this episode. Pt denies c/s pain at this time. R hand dominant. Pt reports he pain starts at the elbow and extends down to her fingers. Pt notes her R UE is much worse than her L UE. Pt reports her skin is hypersensitive as well. Pt reports her hands feel really weak as well which results in her feeling like she could drop her baby or while carrying the car seat. Pt reports she had recent xrays which revealed mild loss of cervical lordosis. Occasional sleep diff secondary to pain. Pt reports reaching for the floor or throwing something makes her pain worse. Pt reports stretching her arm out relieves her pain. 4/10 at rest, 7/10 at worst. - Pain B arms Pain Intensity (Out of 10): 4 Pain Intensity Range: 7 - Objective Neuro: Pt is hyposensitive along the C5-6 dermatonal patterns. All other UE sensation is WNL. B bicepital reflex= 2/3. Palpation: Minor muscle guarding in upper traps. No obvious deformity. Increase in UE T and N with palpation to R scalene muscle groups. ROM: L shoulder is equal to R shoulder. c/s rom: all ranges WNL. MMT: B UE's are grossly 4/5 throughout. R manager produce strength= 20# force, L manager produce= 30# force. Special tests: - Goals Goal 1:: Increase B UE strength x 1 grade to aid with holding car seat Goal Time Frame: 4-6 Weeks Goal 2:: Decrease the F and I of B UE radiculopathy x 50% to aid with IADL's Goal Time Frame: 4-6 Weeks Goal 3:: Decrease B UE pain x 50% to aid with sleep Goal Time Frame: 4-6 Weeks Goal 4:: I with HEP Goal Time Frame: 4-6 Weeks - Rehabilitation Potential Physical Therapy Diagnosis: Pt has B UE pain, weakness, and radiculopathy secondary to B TOS Rehabilitation Potential: Good - Anticipated Interventions Patient/Client Instruction: Educate patient on: Condition, Plan of Care For the Purpose of:: To improve self management Therapeutic Exercise to Include: Strength training, Endurance training, Postural training, Flexibilty training, Active ROM, Scapular Strength/Stabilization For the Purpose of:: To decrease pain, To increase ROM, To improve muscle performance and motor function Manual Therapy Techniques to Include: Soft tissue mobilization For the Purpose of:: To decrease pain Thank you for the opportunity to evaluate your patient. For Medicare and Medicare HMO plans, please review the plan of care and approve it. It will need to be FAXED BACK to us at [phone] for Medicare purposes. Please let me know if there are questions or concerns regarding this plan of care. Physician Signature: Date:
--- NOTE | 2017-12-08 10:08 | HP.PT.NRP ---
HP - Discharge Summary (1) - Patient Information TIFFANIE WHITTAKER was seen in my office for initial evaluation on 10/03/17. The following Plan of Care was established for this patient: Initial Frequency: 2x /Week Initial Duration: 4-6 Weeks - Anticipated Interventions Patient/Client Instruction: Educate patient on: Condition, Plan of Care For the Purpose of:: To improve self management Therapeutic Exercise to Include: Strength training, Endurance training, Postural training, Flexibilty training, Active ROM, Scapular Strength/Stabilization For the Purpose of:: To decrease pain, To increase ROM, To improve muscle performance and motor function Manual Therapy Techniques to Include: Soft tissue mobilization For the Purpose of:: To decrease pain This patient was last seen in our office . Pertinent comments regarding their Physical therapy will appear below: Pt was treated for 4 PT visits for her B UE pain and radiculopathy through the date of 10/20/17. Pt has not returned through todays date, and is therefore discontinued at this time. At this point I will be discontinuing this patient from physical therapy. I would be happy to see this patient again in the future if found appropriate by the physician. Thank you! Jamison Lopez, PT,
== END 2017-10-20 19:00 | disposition home or self-care (01) ==
LOC: PT 09:00
PROVIDERS: Family Provider Family Medicine; PCP Family Medicine; Visit Provider Family Medicine
DX: R20.2 Paresthesia of skin (principal); M77.12 Lateral epicondylitis, left elbow; M77.11 Lateral epicondylitis, right elbow; G54.0 Brachial plexus disorders; M79.1 Myalgia; R29.898 Other symptoms and signs involving the musculoskeletal system
CPT/HCPCS: 97140; 97162

== ENCOUNTER 2018-09-20 14:52 | Emergency (ER) | payer BC, SELFPAY ==
[2018-09-20 14:52] VITALS: BP 136/77; PULSE 82; RESP 16; TEMP 36.9; O2SAT 97; BMI 25.8; BMI 30.5
--- NOTE | 2018-09-20 15:01 | ED.VIS.GEN ---
History of Present Illness Chief Complaint: Laceration Detail of Chief Complaint: Left hand laceration Informant: Patient Onset: Today Current Severity: Mild Maximum Severity: Mild Narrative: Patient presents with a laceration to the left hand along the webspace between her thumb and index finger. Patient states she was holding a piece of gum and trying to cut it with a pair of scissors. She cut the skin between her fingers. Bleeding is controlled at this time. She is unsure of her last tetanus update. She is right-hand dominant. Past Medical History - Allergies and Home Meds Allergies/Adverse Reactions: Allergies No Known Allergies Allergy (Verified 11/20/17 11:55) Primary Care Physician: Azael Dailey MD [Primary Care Provider] - Prior records reviewed: Yes Past Medical History: - - Reviewed Lives: With Family Smoking Status: Former smoker Review of Systems General: Denies: Chills, Fever Eyes: Denies: Visual changes - bilaterally ENT: Denies: Bilateral ear pain Cardiovascular: Denies: Chest pain Respiratory: Denies: Dyspnea Musculoskeletal: Reports: Myalgias Skin: Reports: Wounds Neurological: Denies: Parasthesia, Numbness Hematologic: Denies: Easy bruising, Easy bleeding Physical Exam Vital Signs/Narrative: Vital Signs Temp Pulse Resp BP Pulse Ox 09/20/18 14:52 98.4 F 82 16 136/77 H 97 Inital Vital Signs reviewed: Yes General: Well nourished, Well developed Head: Normocephalic ENT: Moist mucous membranes Cardiovascular: Regular rate, Regular rhythm Respiratory: No distress Extremities: - - There is a V-shaped laceration to the webspace between the left thumb and index finger measuring total length of 1 cm. Mild bleeding is noted. Normal neuro exam with good cap refill distally. Neurological: Alert, Oriented x3 Psychological: Normal affect Diagnostic/Tx/Re-eval - Medical Decision Making Wound was anesthetized with 3 cc of 1% lidocaine. Wound was cleansed and irrigated. 2 simple interrupted sutures of 5-0 nylon were placed. Antibiotic ointment and dressing are placed. Tetanus will be updated. Patient will have sutures removed in 7 to 10 days. Procedures - Lacerations No standard instances Length: 0.39 in Depth: Skin Shape: Flap Prep: Christiano Laceration repair: Lidocaine, Local Number of Sutures/Todd: 2 Suture Information: Simple, 5-0 ED Disposition - Plan for ED Patient: Disposition: Home or Assisted Living Diagnosis: Laceration of left hand Instructions: LACERATION, Hand Referrals: Azael Dailey MD [Primary Care Provider] - 7 Days for suture removal
[2018-09-20 15:43] VITALS: BP 107/63; PULSE 66; RESP 16; O2SAT 97
--- NOTE | 2018-09-20 15:44 | ED.RN ---
REVIEWED D/C INSTRUCTIONS, FOLLOW UP CARE, AND S/S THAT WOULD WARRANT A RETURN TO THE ED WITH PT. PT VERBALIZED AN UNDERSTANDING AND DENIES FURTHER QUESTIONS FOR THIS RN. PT SKIN P/W/D, RESP EVEN AND UNLABORED, PT A&O X 3, NO DISTRESS NOTED. PT AMBULATED OUT OF ED, GAIT STEADY.
== END 2018-09-20 15:46 | disposition home or self-care (01) ==
PROVIDERS: Emergency Provider Emergency Medicine; Family Provider Family Medicine; PCP Family Medicine
DX: S61.412A Laceration without foreign body of left hand, initial encounter (principal); W26.8XXA Contact with other sharp object(s), not elsewhere classified, initial encounter; Y93.89 Activity, other specified; Z87.891 Personal history of nicotine dependence
CPT/HCPCS: 12001; 99283

== ENCOUNTER → 2020-01-26 | Outpatient (CLI) | payer BC, SELFPAY ==
[2020-01-26 13:57] VITALS: BMI 28.4
== END | disposition home or self-care (01) ==
LOC: LABSPEC 16:27
PROVIDERS: PCP Family Medicine; Referring Provider Obstetrics & Gynecology; Visit Provider Obstetrics & Gynecology
DX: N89.8 Other specified noninflammatory disorders of vagina (principal)
CPT/HCPCS: 87070; 87205

== ENCOUNTER → 2020-02-21 | Outpatient (CLI) | payer BC, SELFPAY ==
[2020-01-26 13:57] VITALS: BMI 28.4
== END | disposition home or self-care (01) ==
PROVIDERS: PCP Family Medicine; Referring Provider Nurse Practitioner Family; Visit Provider Nurse Practitioner Family
DX: N30.00 Acute cystitis without hematuria (principal)
CPT/HCPCS: 87086; 87088

== ENCOUNTER → 2020-12-01 | Outpatient (CLI) | payer BC, SELFPAY | END | disposition home or self-care (01) | PROVIDERS: PCP Family Medicine; Referring Provider Family Medicine; Visit Provider Family Medicine | DX: B34.9 Viral infection, unspecified (principal) | CPT/HCPCS: 87633; 87635; U0005; U0003 ==

== ENCOUNTER → 2020-12-21 09:04 | Outpatient (CLI) | payer OTHER, SELFPAY ==
[2020-12-21 10:31] LABS: Absolute Lymphocyte Count 2.01 X10^3/uL (0.83-4.51); Basophil# 0.02 X10^3/uL; Basophil% 0.3 % (0-1); Eosinophil# 0.29 X10^3/uL; Hematocrit 41.7 % (37-47); Lymphocyte # 2.01 X10^3/ul (0.83-4.51); Lymphocyte % 34.9 % (19-41); Mean Corp Hgb Conc 33.6 g/dL (32-36); Mean Corpuscular Hgb 31.5 pg (27.0-32.0); Mean Corpuscular Volume 93.7 fL (81-99); Monocyte% 6.9 % (0-10); NRBC Flagged by Analyzer 0 % (0-5); Neutrophil # 3.02 X10^3/uL (2.7-7.7); Neutrophil % 52.6 % (47-70); Platelet Count 251 K/mm3 (150-450); RBC Distribution Width CV 11.6 % (11.6-14.6); RBC Distribution Width SD 39.9 fl (35.1-43.9); Red Blood Count 4.45 M/mm3 (4.2-5.4); White Blood Count 5.8 K/mm3 (4.4-11.0)
[2020-12-21 11:09] LABS: AST(SGOT) 10 U/L (15-37); Alanine Aminotransfer ALT/SGPT 18 U/L (13-56); Alkaline Phosphatase 52 U/L (45-117); Bilirubin, Direct 0.11 mg/dL (0.00-0.30); Cholesterol 160 mg/dL (200); Globulin 3.8 g/dL (2.2-4.2); High Density Lipoprotein 63 mg/dL; Protein, Total 7.8 g/dL (6.4-8.2); Triglycerides 54 mg/dL; Very Low Density Lipoprotein 11 mg/dL (5-40)
[2020-12-22 13:47] LABS: LDL, Direct 120295 91 mg/dL (0-99)
== END ==
PROVIDERS: PCP Family Medicine; Referring Provider Dermatology; Visit Provider Dermatology
DX: L70.0 Acne vulgaris (principal); L71.8 Other rosacea; L72.0 Epidermal cyst; L23.7 Allergic contact dermatitis due to plants, except food; Z79.899 Other long term (current) drug therapy
CPT/HCPCS: 36415; 80061; 80076; 83721; 85025

== ENCOUNTER → 2022-01-09 | Outpatient (CLI) | payer OTHER, SELFPAY ==
[2022-01-09 13:12] LABS: ALB/GLOB Ratio 1.4 RATIO (0.9-2.4); AST(SGOT) 15 U/L (15-37); Alanine Aminotransfer ALT/SGPT 24 U/L (13-56); Albumin, Serum 4.4 g/dL (3.2-5.0); Alkaline Phosphatase 50 U/L (45-117); Anion Gap 7 (5-15); BUN 10 mg/dL (7-18); BUN/Creat Ratio 15.3 RATIO (10-20); Calcium,Total 9.6 mg/dL (8.5-10.1); Chloride 104 mmol/L (98-107); Creatinine, Serum 0.66 mg/dL (0.55-1.02); EST Glomerular Filtration Rate 108 mL/min (>60); Est Glom Filt Rate - Afr Amer 130 mL/min (>60); Globulin 3.1 g/dL (2.2-4.2); Glucose 90 mg/dL (74-106); Potassium 4.2 mmol/L (3.5-5.1); Protein, Total 7.5 g/dL (6.4-8.2); Sodium Level 139 mmol/L (136-145); Thyroid Stim Hormone (TSH) 0.84 uIU/mL (0.358-3.74)
== END | disposition home or self-care (01) ==
PROVIDERS: PCP Family Medicine; Referring Provider Family Medicine; Visit Provider Family Medicine
DX: E66.3 Overweight (principal)
CPT/HCPCS: 36415; 80053; 84443

== ENCOUNTER → 2022-11-26 | Outpatient (CLI) | payer BC, SELFPAY ==
[2022-12-02 10:07] LABS: HPV APTIMA, High Risk Negative (Negative)
== END | disposition home or self-care (01) ==
LOC: LABSPEC 16:01
PROVIDERS: PCP Family Medicine; Referring Provider Nurse Practitioner Women's Health; Visit Provider Nurse Practitioner Women's Health
DX: Z12.4 Encounter for screening for malignant neoplasm of cervix (principal)
CPT/HCPCS: 87624; 88175; G0145

== ENCOUNTER → 2023-10-23 | Outpatient (CLI) | payer BC, SELFPAY ==
[2023-10-23 12:25] LABS: Erythrocyte Sedimentation Rate < 1 mm/hr (0-30)
[2023-10-23 12:29] LABS: Absolute Lymphocyte Count 1.91 X10^3/uL (0.83-4.51); Absolute Neutrophil Count 3.9 X10^3/uL (2.0-7.7); Basophil# 0.04 X10^3/uL; Basophil% 0.6 % (0-1); Eosinophil# 0.29 X10^3/uL; Eosinophils% 4.4 % (0-5); Hematocrit 41.7 % (37-47); Hemoglobin 14.3 g/dL (12.0-15.0); Lymphocyte # 1.91 X10^3/ul (0.83-4.51); Mean Corp Hgb Conc 34.3 g/dL (32-36); Mean Corpuscular Hgb 31.8 pg (27.0-32.0); Mean Corpuscular Volume 92.9 fL (81-99); Mean Platelet Vol. 10.1 fl (6.2-12.0); Monocyte# 0.45 X10^3/uL; Monocyte% 6.8 % (0-10); NRBC Flagged by Analyzer 0 % (0-5); Neutrophil # 3.87 X10^3/uL (2.7-7.7); Neutrophil % 58.7 % (47-70); Platelet Count 232 K/mm3 (150-450); RBC Distribution Width CV 11.9 % (11.6-14.6); RBC Distribution Width SD 40.6 fl (35.1-43.9); Red Blood Count 4.49 M/mm3 (4.2-5.4); White Blood Count 6.6 K/mm3 (4.4-11.0)
[2023-10-23 13:00] LABS: ALB/GLOB Ratio 1.2 RATIO (0.9-2.4); AST(SGOT) 9 U/L (15-37); Alanine Aminotransfer ALT/SGPT 13 U/L (13-56); Albumin, Serum 4.4 g/dL (3.2-5.0); Alkaline Phosphatase 42 U/L (45-117); Anion Gap 8 (5-15); BUN 11 mg/dL (7-18); BUN/Creat Ratio 16.7 RATIO (10-20); CRP < 2.90 mg/L (0.0-3.0); Calcium,Total 9.7 mg/dL (8.5-10.1); Chloride 106 mmol/L (98-107); Creatinine, Serum 0.66 mg/dL (0.55-1.02); EST Glomerular Filtration Rate 106 mL/min (>60); Est Glom Filt Rate - Afr Amer 128 mL/min (>60); Globulin 3.7 g/dL (2.2-4.2); Glucose 92 mg/dL (74-106); Potassium 4.1 mmol/L (3.5-5.1); Protein, Total 8.1 g/dL (6.4-8.2); Sodium Level 136 mmol/L (136-145); Thyroid Stim Hormone (TSH) 0.985 uIU/mL (0.358-3.740)
[2023-10-27 14:08] LABS: Endomysial Antibody IgA Negative (Negative); Immunoglobulin A 156 mg/dL (87-352); t-Transglutaminase IgA <2 U/mL (0-3)
[2023-10-29 17:08] LABS: Beef <0.10 kU/L (Class 0); Chocolate <0.10 kU/L (Class 0); Codfish <0.10 kU/L (Class 0); Corn <0.10 kU/L (Class 0); Egg, Whole <0.10 kU/L (Class 0); Milk (Cow) <0.10 kU/L (Class 0); Mussels <0.10 kU/L (Class 0); Peanut <0.10 kU/L (Class 0); Pork <0.10 kU/L (Class 0); Salmon <0.10 kU/L (Class 0); Shrimp <0.10 kU/L (Class 0); Soybean <0.10 kU/L (Class 0); Tuna <0.10 kU/L (Class 0); Wheat <0.10 kU/L (Class 0)
== END | disposition home or self-care (01) ==
LOC: MTLAB 10:42 → MFPLAB 10:58
PROVIDERS: PCP Family Medicine; Referring Provider Family Medicine; Visit Provider Family Medicine
DX: R19.7 Diarrhea, unspecified (principal)
CPT/HCPCS: 36415; 80053; 82784; 83516; 84443; 85025; 85652; 86003; 86005; 86140; 86255

== ENCOUNTER → 2023-11-20 | Outpatient (CLI) | payer BC, SELFPAY ==
[2023-11-20 11:20] LABS: Erythrocyte Sedimentation Rate < 1 mm/hr (0-30)
[2023-11-20 12:20] LABS: ALB/GLOB Ratio 1.3 RATIO (0.9-2.4); AST(SGOT) 11 U/L (15-37); Alanine Aminotransfer ALT/SGPT 16 U/L (13-56); Albumin, Serum 4.3 g/dL (3.2-5.0); Alkaline Phosphatase 42 U/L (45-117); Anion Gap 7 (5-15); BUN 8 mg/dL (7-18); BUN/Creat Ratio 13.1 RATIO (10-20); CRP < 2.90 mg/L (0.0-3.0); Calcium,Total 9.1 mg/dL (8.5-10.1); Chloride 109 mmol/L (98-107); Creatinine, Serum 0.61 mg/dL (0.55-1.02); EST Glomerular Filtration Rate 116 mL/min (>60); Est Glom Filt Rate - Afr Amer 140 mL/min (>60); Free T3 2.9 pg/mL (2.18-3.98); Globulin 3.3 g/dL (2.2-4.2); Glucose 93 mg/dL (74-106); LDH 135 U/L (84-246); Protein, Total 7.6 g/dL (6.4-8.2); Sodium Level 137 mmol/L (136-145); T4 Free Direct 0.95 ng/dL (0.76-1.46); Thyroid Stim Hormone (TSH) 0.841 uIU/mL (0.358-3.740)
[2023-11-21 10:09] LABS: Anti-Centromere B Ab <0.2 AI (0.0-0.9); Anti-Chromatin <0.2 AI (0.0-0.9); Anti-Jo <0.2 AI (0.0-0.9); Anti-Scleroderma-70 AB <0.2 AI (0.0-0.9); Anti-dsDNA Ab 1 IU/mL (0-9); RNP Ab <0.2 AI (0.0-0.9); SJOGREN'S Anti-SS-A test < 0.2 AI (0.0-0.9); SJOGREN'S Anti-SS-B test < 0.2 AI (0.0-0.9); Smith Ab <0.2 AI (0.0-0.9)
[2023-11-25 11:09] LABS: ACCA 4 units (0-90); ALCA 47 units (0-60); AMCA 14 units (0-100); Albumin 4.3 g/dL (2.9-4.4); Alpha-1-Globulins 0.2 g/dL (0.0-0.4); Alpha-2-Globulins 0.6 g/dL (0.4-1.0); Cytoplasmic Ab (C-ANCA) <1:20 titer (Neg:<1:20); Gamma Globulin 1.1 g/dL (0.4-1.8); Immunoglobulin A 146 mg/dL (87-352); Immunoglobulin E 41 IU/mL (6-495); Immunoglobulin G 1002 mg/dL (586-1602); Immunoglobulin M 95 mg/dL (26-217); PROEL- TOTAL PROTEIN 7.1 g/dL (6.0-8.5); Perinuclear Ab (P-ANCA) <1:20 titer (Neg:<1:20); gASCA 7 units (0-50)
== END | disposition home or self-care (01) ==
LOC: LAB 10:23
PROVIDERS: PCP Family Medicine; Referring Provider Student in an Organized Health Care Education/Training Program; Visit Provider Student in an Organized Health Care Education/Training Program
DX: R19.7 Diarrhea, unspecified (principal)
CPT/HCPCS: 36415; 80053; 82784; 82785; 83516; 83615; 84165; 84439; 84443; 84481; 85652; 86036; 86037; 86140; 86225; 86235; 86334; 86671

== ENCOUNTER → 2023-12-05 | Outpatient (CLI) | payer BC, SELFPAY ==
--- OUTSIDE RECORDS SUMMARY | 2023-12-05 09:35 | XMS RPT_ITS | CCD ---
Author Organization [facility] Results Test Name Value Interpretation Reference Range Facil ity CNOVon 10-29-2018 CNOV Office Visit ([facility]) REMEDIOSTIFFANIE ([id number]) 1985 F T Date Time Provider Department 10/29/18 1:00 PM [facility] During your visit today, we recorded the following information about you: Temperature Pulse Respiration Blood pressure 97.8 degrees 89/minute 16/minute 122/84 Weight 79.4 kg Ashlie Mann APRN.RISK PROFESSIONAL 10/29/2018 1:44 PM Signed Subjective HPI Tiffanie Monteiro is a 33 year old female who presents with cough, congestion, and ear clogged sensation. Pressure in the head and sinuses. Diarrhea for 2 days. She has tried some vitamins OTC to try to help boost her immunity. No measured temperature, but has had some hot flashes. Review of Systems Constitutional: Negative for chills, fever and malaise/fatigue. HENT: Positive for congestion, ear pain, hearing loss and sinus pain. Negative for sore throat. Respiratory: Positive for cough. Negative for sputum production, shortness of breath and wheezing. Cardiovascular: Negative for chest pain and palpitations. Gastrointestinal: Positive for diarrhea. Negative for abdominal pain, nausea and vomiting. Musculoskeletal: Negative for joint pain and myalgias. Skin: Negative for itching and rash. BP 122/84 Pulse 89 Temp 36.6 ?C (97.8 ?F) (Tympanic) Resp 16 Wt 79.4 kg (175 lb) SpO2 99% BMI 28.25 kg/m? PAST MEDICAL HISTORY Diagnosis Date - NEGATIVE MEDICAL HISTORY PAST SURGICAL HISTORY Procedure Laterality Date - DELIVERY ONLY , low transverse - LAP CHOLECYSTECT/CHOLANG IOGRAPHY 02-08-13 - LASIK 2009 bilateral - REM LESION TRUNK,ARM, LEG <0.5 CM 02-08-13 ABDOMEN X3 - REMOVAL ADENOIDS,PRIMARY,<12 Y/O Adenoidectomy - REMOVAL OF TONSILS,<12 Y/O Tonsillectomy ALLERGIES Patient has no known allergies. MEDICATIONS venlafaxine ER (EFFEXOR XR) 150 mg 24 hr capsule Take 150 mg by mouth once daily. fluticasone (FLONASE) 50 mcg/actuation nasal spray Use 2 Sprays in each nostril once daily. cyclobenzaprine (FLEXERIL) 10 mg tablet Take 1 tablet by mouth three times daily as needed for Muscle Spasm. FAMILY HISTORY Problem Relation Age of Onset - Ischemic Heart Disease Paternal Grandmother - Cancer Paternal Grandfather skin - other (crohns [Other]) Other cousin, PAunt, Octavio Social History Tobacco Use - Smoking status: Never Smoker - Smokeless tobacco: Never Used Substance Use Topics - Alcohol use: Yes Comment: socially - Drug use: No Objective Physical Exam Constitutional: She is oriented to person, place, and time and well-developed, well-nourished, and in no distress. HENT: Head: Normocephalic and atraumatic. Right Ear: Tympanic membrane is bulging. Tympanic membrane is not erythematous. No middle ear effusion. Left Ear: Tympanic membrane is erythematous and bulging. No middle ear effusion. Nose: Mucosal edema and rhinorrhea present. Right sinus exhibits frontal sinus tenderness. Right sinus exhibits no maxillary sinus tenderness. Left sinus exhibits frontal sinus tenderness. Left sinus exhibits no maxillary sinus tenderness. Mouth/Throat: No posterior oropharyngeal edema or posterior oropharyngeal erythema. Eyes: Conjunctivae are normal. Cardiovascular: Normal rate, regular rhythm, normal heart sounds and intact distal pulses. Exam reveals no gallop and no friction rub. No murmur heard. Pulmonary/Chest: Effort normal and breath sounds normal. No respiratory distress. She has no wheezes. She has no rales. She exhibits no tenderness. Abdominal: Soft. Bowel sounds are normal. She exhibits no distension. There is no tenderness. Musculoskeletal: She exhibits no edema. Lymphadenopathy: She has no cervical adenopathy. Neurological: She is alert and oriented to person, place, and time. Gait normal. Skin: Skin is warm and dry. No rash noted. She is not diaphoretic. Psychiatric: Mood, memory, affect and judgment normal. ASSESSMENT/PLAN: 1. Acute upper respiratory infection - ICD9: 465.9, ICD10: J06.9 - Symptomatic treatment with prn analgesia - Supportive care with fluids and rest - FLUTICASONE PROPIONATE 50 MCG/ACTUATION NASAL SPRAY,SUSPENSION - AZITHROMYCIN 250 MG TABLET Patient understands if he/she develops any shortness of breath, chest pain, or persistent fever, they should be taken to the ER immediately or call 911. All of the above discussed with the patient in detail. Patient is in agreement with the above plan. Treatment and plan of care discussed including course of treatment, possible medication side effects, and what to watch for in regards to worsening signs and symptoms. All questions addressed. Ashlie Mann APRN.RISK PROFESSIONAL Referring Provider: SELF [[id number]] Allergies As of Date: 10/29/2018 (No Known Allergies) Date Reviewed: 10/29/2018 Reviewed by: Ashlie Mann - Fully Assessed Reason for Visit: Cough [28] Cmt: and congestion x 1 week Ear Problem [38] Cmt: (both) ears feels clogged x 1 week Diarrhea [35] Cmt: x 2 days Visit Diagnosis:Acute upper respiratory infection [J06.9] Order(s):fluticasone (FLONASE) 50 mcg/actuation nasal sprayUse 2 Sprays in each nostril once daily.Disp: 1 BottleRfl: 1 azithromycin (ZITHROMAX Z-LISETTE) 250 mg tabletTake 2 tablets day one, then, 1 tablet daily until gone.Disp: 1 PackageRfl: 0 Prescriptions as of 10/29/2018 Sig: VENLAFAXINE ER 150 MG CAPSULE* Take 150 mg by mouth once frank* FLUTICASONE PROPIONATE 50 MCG* Use 2 Sprays in each nostril * AZITHROMYCIN 250 MG TABLET Take 2 tablets day one, then,* CYCLOBENZAPRINE 10 MG TABLET Take 1 tablet by mouth three * Problem List As Of Date 10/29/2018 Noted Resolved Biliary dyskinesia [K82.8] INVALID FOR* Skin lesion [L98.9] INVALID FOR* Prescriptions ordered this encounter Disp Refills Start End FLUTICASONE PROPIONATE 50 MCG/ACTUAT* 1 Cristian* 1 10/29/2018 Route: EACH NOSTRIL Sig: Use 2 Sprays in each nostril once daily. AZITHROMYCIN 250 MG TABLET 1 Pa* 0 10/29/2018 11/03/2018 Sig: Take 2 tablets day one, then, 1 tablet daily until gone. Medications Discontinued During This Encounter fluticasone (FLONASE) 50 mcg/actuati* 1 Cristian* 1 04/18/2014 10/29/2018 Route: EACH NOSTRIL Sig: Use 2 Sprays in each nostril once daily. Disc: Reason for discontinue is not on file. azithromycin (ZITHROMAX Z-LISETTE) 250 m* 1 Pa* 0 05/14/2015 10/29/2018 Sig: Take 2 tablets day one, then, 1 tablet daily until gone. Disc: Reason for discontinue is not on file. Encounter Status:Closed by MACKENZIE VICTORIA.ASHLIE THOMAS on 10/29/18 Normal [facility] PROGRESSon 10-29-2018 PROGRESS HNO ID: [id number] Author: Ashlie Mann Service: ? Author Type: Nurse Practitioner Type: Progress Notes Filed: 10/29/2018 1:44 PM Note Text: Subjective HPI Tiffanie Monteiro is a 33 year old female who presents with cough, congestion, and ear clogged sensation. Pressure in the head and sinuses. Diarrhea for 2 days. She has tried some vitamins OTC to try to help boost her immunity. No measured temperature, but has had some hot flashes. Review of Systems Constitutional: Negative for chills, fever and malaise/fatigue. HENT: Positive for congestion, ear pain, hearing loss and sinus pain. Negative for sore throat. Respiratory: Positive for cough. Negative for sputum production, shortness of breath and wheezing. Cardiovascular: Negative for chest pain and palpitations. Gastrointestinal: Positive for diarrhea. Negative for abdominal pain, nausea and vomiting. Musculoskeletal: Negative for joint pain and myalgias. Skin: Negative for itching and rash. BP 122/84 Pulse 89 Temp 36.6 ?C (97.8 ?F) (Tympanic) Resp 16 Wt 79.4 kg (175 lb) SpO2 99% BMI 28.25 kg/m? PAST MEDICAL HISTORY Diagnosis Date - NEGATIVE MEDICAL HISTORY PAST SURGICAL HISTORY Procedure Laterality Date - DELIVERY ONLY , low transverse - LAP CHOLECYSTECT/CHOLANG IOGRAPHY 02-08-13 - LASIK 2009 bilateral - REM LESION TRUNK,ARM, LEG <0.5 CM 02-08-13 ABDOMEN X3 - REMOVAL ADENOIDS,PRIMARY,<12 Y/O Adenoidectomy - REMOVAL OF TONSILS,<12 Y/O Tonsillectomy ALLERGIES Patient has no known allergies. MEDICATIONS venlafaxine ER (EFFEXOR XR) 150 mg 24 hr capsule Take 150 mg by mouth once daily. fluticasone (FLONASE) 50 mcg/actuation nasal spray Use 2 Sprays in each nostril once daily. cyclobenzaprine (FLEXERIL) 10 mg tablet Take 1 tablet by mouth three times daily as needed for Muscle Spasm. FAMILY HISTORY Problem Relation Age of Onset - Ischemic Heart Disease Paternal Grandmother - Cancer Paternal Grandfather skin - other (crohns [Other]) Other cousin, PAunt, PUncle Social History Tobacco Use - Smoking status: Never Smoker - Smokeless tobacco: Never Used Substance Use Topics - Alcohol use: Yes Comment: socially - Drug use: No Objective Physical Exam Constitutional: She is oriented to person, place, and time and well-developed, well-nourished, and in no distress. HENT: Head: Normocephalic and atraumatic. Right Ear: Tympanic membrane is bulging. Tympanic membrane is not erythematous. No middle ear effusion. Left Ear: Tympanic membrane is erythematous and bulging. No middle ear effusion. Nose: Mucosal edema and rhinorrhea present. Right sinus exhibits frontal sinus tenderness. Right sinus exhibits no maxillary sinus tenderness. Left sinus exhibits frontal sinus tenderness. Left sinus exhibits no maxillary sinus tenderness. Mouth/Throat: No posterior oropharyngeal edema or posterior oropharyngeal erythema. Eyes: Conjunctivae are normal. Cardiovascular: Normal rate, regular rhythm, normal heart sounds and intact distal pulses. Exam reveals no gallop and no friction rub. No murmur heard. Pulmonary/Chest: Effort normal and breath sounds normal. No respiratory distress. She has no wheezes. She has no rales. She exhibits no tenderness. Abdominal: Soft. Bowel sounds are normal. She exhibits no distension. There is no tenderness. Musculoskeletal: She exhibits no edema. Lymphadenopathy: She has no cervical adenopathy. Neurological: She is alert and oriented to person, place, and time. Gait normal. Skin: Skin is warm and dry. No rash noted. She is not diaphoretic. Psychiatric: Mood, memory, affect and judgment normal. ASSESSMENT/PLAN: 1. Acute upper respiratory infection - ICD9: 465.9, ICD10: J06.9 - Symptomatic treatment with prn analgesia - Supportive care with fluids and rest - FLUTICASONE PROPIONATE 50 MCG/ACTUATION NASAL SPRAY,SUSPENSION - AZITHROMYCIN 250 MG TABLET Patient understands if he/she develops any shortness of breath, chest pain, or persistent fever, they should be taken to the ER immediately or call 911. All of the above discussed with the patient in detail. Patient is in agreement with the above plan. Treatment and plan of care discussed including course of treatment, possible medication side effects, and what to watch for in regards to worsening signs and symptoms. All questions addressed. Ashlie Mann APRN.RISK PROFESSIONAL Normal [facility] Summary Purpose Family History No Family History Records Found Advance Directives No Advanced Directives Records Found Additional Source Comments INFORMATION SOURCE (unrecogn ized section and content) DATE CREATED AUTHOR 10/29/2018 [facility] FOR RECORDS PERTAINING TO PATIENTS WHO ARE OR HAVE BEEN ENROLLED IN A CHEMICAL DEPENDENCY/SUBSTANCEABUSE PROGRAM, SOME INFORMATION MAY BE OMITTED. This clinical summary was aggregated from multiple sources. Caution should be exercised in using it in the provision of clinical care. This summary normalizes information from multiple sources, and as a consequence, information in this document may materially change the coding, format and clinical context of patient data. In addition, data may be omitted in some cases. CLINICAL DECISIONS SHOULD BE BASED ON THE PRIMARY CLINICAL RECORDS. [email or web address] provides no warranty or guarantee of the accuracy or completeness of information in this document.
[2023-12-09 02:08] LABS: Giardia Lamblia, Stool EIA Negative (Negative); Pancreatic Elastase, Fecal > 800 (>200)
[2023-12-10 08:13] LABS: Calprotectin, Stool <5 ug/g (0-120)
== END | disposition home or self-care (01) ==
LOC: MTLAB 09:08
PROVIDERS: PCP Family Medicine; Referring Provider Student in an Organized Health Care Education/Training Program; Visit Provider Student in an Organized Health Care Education/Training Program
DX: K58.9 Irritable bowel syndrome, unspecified (principal); R19.7 Diarrhea, unspecified
CPT/HCPCS: 82653; 83630; 83993; 87177; 87209; 87329; 87493; 87506

== ENCOUNTER → 2024-05-21 | Outpatient (CLI) | payer BC, SELFPAY ==
--- NOTE | 2024-05-21 08:30 | BI_ITS ---
EXAM: SCRN MAMM (CAD)W/NARESH BILAT DATE: 05/21/2024 CLINICAL HISTORY: F, Age 38 y/o , SCREEN FOR BREAST CANCER BREAST CANCER RISK ASSESSMENT: Has not been calculated. TECHNIQUE: Bilateral screening digital breast tomosynthesis with 2D and 3D images. Computer aided detection. COMPARISON: None. This is a baseline study. FINDINGS: TISSUE DENSITY: The breast tissue is composed of scattered area of fibroglandular density. Bilateral Breast Mammographic Findings: There are no suspicious masses, suspicious cluster of microcalcifications, architectural distortion or secondary signs of malignancy identified in either breast. Benign round microcalcifications are seen in the right breast. BI/SCRN MAMM (CAD)W/NARESH BILAT IMPRESSION: Right Breast: BIRADS 2 BENIGN FINDING. Left Breast: BIRADS 1 NEGATIVE. OVERALL FINAL ASSESSMENT: BIRADS 2 BENIGN FINDING RECOMMENDATION: Routine annual follow-up in 1 Year A letter with findings and recommendations will be mailed to the patient. Reading Location: [id number]
== END | disposition home or self-care (01) ==
LOC: OPBI 08:26
PROVIDERS: PCP Family Medicine; Referring Provider Nurse Practitioner Family; Visit Provider Nurse Practitioner Family
DX: Z12.31 Encounter for screening mammogram for malignant neoplasm of breast (principal)
CPT/HCPCS: 77063; 77067